=== PATIENT | male | born 1985 | race Caucasian/White ===

== ENCOUNTER 2017-02-26 19:34 | Emergency (ER) | payer SELFPAY ==
[2017-02-26] MEDS ORDERED: Lidocaine/EPINEPHrine/Tetracaine Soln 1 ML TOP ONE (20:12)
[2017-02-26] MEDS ORDERED: Lidocaine 1% 50 ML MDV INJECT ONE (20:12)
--- NOTE | 2017-02-26 20:14 | EDM.PDOC ---
ED HPI GENERAL MEDICAL PROBLEM - General Chief Complaint: Laceration Stated Complaint: POSS RIGHT FOOT LACERATION Time Seen by Provider: 02/26/17 20:13 Source of Information: Reports: Patient History Limitations: Reports: No Limitations - History of Present Illness INITIAL COMMENTS - FREE TEXT/NARRATIVE: 31-year-old male presents for evaluation and treatment of injury to the right medial great toe. Patient reports that the injury occurred around 06 30 this morning. He states that he kicked a glass jar. Reports that he pulled a piece of glass out of the wound. Reports that the area is sore. No numbness, tingling or decreased range of motion. Patient reports that his last tetanus has been within the last 10 years. Onset: Today Location: Reports: Lower Extremity, Right Quality: Reports: Other (soreness) Right Feet Pain Score (Numeric/FACES): 4 - Related Data Allergies Allergy/AdvReac Type Severity Reaction Status Date / Time No Known Allergies Allergy Verified 02/26/17 19:44 Home Meds: Home Meds Cephalexin 500 mg PO BID #14 capsule 02/26/17 [Rx] Past Medical History - Past Health History Medical/Surgical History: Denies Medical/Surgical History Social & Family History - Tobacco Use Smoking Status *Q: Current Every Day Smoker Years of Tobacco use: 3 Packs/Tins Daily: 0.5 - Caffeine Use Caffeine Use: Reports: None - Recreational Drug Use Recreational Drug Use: No ED ROS GENERAL - Review of Systems Review Of Systems: See Below Musculoskeletal: Reports: Other (right great toe soreness around the laceration) Skin: Reports: Wound (right great toe, medial) Neurological: Denies: Numbness, Tingling ED EXAM, SKIN/RASH Exam: See Below Exam Limited By: No Limitations General Appearance: Alert, WD/WN, No Apparent Distress Respiratory/Chest: No Respiratory Distress Cardiovascular: Normal Peripheral Pulses Peripheral Pulses: 3+: Posterior Tibial (L), Posterior Tibial (R), Dorsalis Pedis (L), Dorsalis Pedis (R) Extremities: Normal Inspection, Normal Range of Motion, Normal Capillary Refill Neurological: Alert, Oriented, Normal Cognition Psychiatric: Normal Affect, Normal Mood Skin: Warm, Dry, Normal Color Location, Skin: Lower Extremity, Right (1.5cm subcutaneous laceration to the right medial great toe just proximal to the MTP joint) Characteristics: Linear Associated features: Tenderness ED SKIN PROCEDURES - Laceration/Wound Repair Right Medial Distal Foot Lac/Wound length In cm: 1.5 Appearance: Subcutaneous, Linear, Clean Distal NVT: Neuro & Vascular Intact, No Tendon Injury Anesthetic Type: Local Local Anesthesia - Lidocaine (Xylocaine): 1% Plain Local Anesthetic Volume: 2cc Skin Prep: Chlorhexidine (Hibiciens), Saline, Sterile Drape Closed with: Sutures Suture Size: 4-0 # of Sutures: 3 Suture Type: Nylon, Interrupted, Simple Sterile Dressing Applied: Nurse Tetanus Status Addressed: Yes Complications: No Course - Vital Signs Last Recorded V/S: Last Vital Signs Temp 36.3 C 02/26/17 19:40 Pulse 90 02/26/17 19:40 Resp 16 02/26/17 19:40 BP 124/85 02/26/17 19:40 Pulse Ox 100 02/26/17 19:40 - Orders/Labs/Meds Meds: Medications Discontinued Medications Generic Name Dose Route Start Last Admin Trade Name Kehindeq PRN Reason Stop Dose Admin Lidocaine HCl 50 ml 02/26/17 20:12 02/26/17 20:26 Xylocaine 1% INJECT 02/26/17 20:13 50 ml ONETIME ONE Administration Lidocaine/Tetracaine 1 ml 02/26/17 20:12 02/26/17 20:25 Let Soln TOP 02/26/17 20:13 1 ml ONETIME ONE Administration - Re-Assessments/Exams Free Text/Narrative Re-Assessment/Exam: 02/26/17 21:24 3 sutures placed to the right medial great toe. Patient tolerated the procedure well. No complications. Patient reports his tetanus is up to date. Departure - Departure Time of Disposition: 21:31 Disposition: Home, Self-Care 01 Condition: Good Clinical Impression: Laceration - Discharge Information Prescriptions: Cephalexin 500 mg PO BID #14 capsule Instructions: Laceration Care, Adult, [id number] Referrals: PCP,None [Primary Care Provider] - Forms: ED Department Discharge, ED Return to Work/School Form Additional Instructions: Wash the wound with gentle soap and water twice a day. Keep the wound covered when in the shoes. Open to air as much as you able to. [id number] Tylenol or Motrin as needed for pain relief. Cephalexin 1 tablet twice a day for 7 days. Have the sutures removed in 7-[address] [facility] located in the side of the hospital is open 8 AM to 5 PM Friday through Friday and remove the sutures for free. Recommend Darlin Lutz. Please call [phone] to schedule an appointment with her. Monitor for signs of infection such as increased swelling, pus or redness. Present to the clinic or the ER should these develop. Please return to the ER for any problems, questions or concerns.
== END 2017-02-26 21:43 | disposition home or self-care (01) ==
LOC: JD.ED 19:34
DX: S91.111A Laceration without foreign body of right great toe without damage to nail, initial encounter (principal); F17.210 Nicotine dependence, cigarettes, uncomplicated; W25.XXXA Contact with sharp glass, initial encounter
CPT/HCPCS: 12001; 99283; A9270